=== PATIENT | male | born 1990 | race Caucasian/White ===

== ENCOUNTER 2016-04-23 08:33 | Day surgery (SDC) | payer BC, SELFPAY ==
[~2016-04-23] VITALS: Ht 177.8 cm; Wt 68.0 kg
[~2016-04-23 08:33] MED LIST: ALBU17IN INH; DOCU10CA PO; LEVA500T PO; MILKSUS PO; MOTR200T44 PO; NICO14DI3 TD; SENO8.6T2 PO; TYLE500T78 PO; ZITH250T PO; robitussin PO
[2016-04-23] MEDS ORDERED: dexameTHASONE 4 MG/ML 1ML VIAL (J1100) IV ONE (08:45)
[2016-04-23] MEDS ORDERED: LR 1,000 ML IV SCH ×2 (08:45→18:15)
[2016-04-23] MEDS ORDERED: CEFUROXIME SODIUM 1.5 GM in D5W MINI-BAG PLUS 50 ML IV ONE (08:45)
[2016-04-23] MEDS ORDERED: BACITRACIN PWD 50,000 UNITS VIAL As Ordered ONE (10:55)
[2016-04-23] MEDS ORDERED: THROMBIN SOLN 20,000 UNITS KIT As Ordered ONE (10:55)
[2016-04-23] MEDS ORDERED: ROCURONIUM BROMIDE 50 MG/5 ML VIAL As Ordered ONE (14:12)
[2016-04-23] MEDS ORDERED: MIDAZOLAM INJ 2 MG/2 ML VIAL (J2250) As Ordered ONE (14:12)
[2016-04-23] MEDS ORDERED: PROPOFOL 200 MG/20 ML VIAL As Ordered ONE ×2 (14:12)
[2016-04-23] MEDS ORDERED: LIDOCAINE 2% INJ 100 MG/5 ML SDV (FOR ANES.) As Ordered ONE (14:12)
[2016-04-23] MEDS ORDERED: ONDANSETRON 4MG/2ML VIAL (J2405) As Ordered ONE (14:12)
[2016-04-23] MEDS ORDERED: ePHEDrine SULFATE 25 MG/5 ML(5MG/ML) SYRINGE As Ordered ONE ×2 (14:12→15:30)
[2016-04-23] MEDS ORDERED: fentaNYL 250 MCG/5 ML INJECTION (J3010) As Ordered ONE (14:12)
[2016-04-23] MEDS ORDERED: GLYCOPYRROLATE INJ 0.2 MG/ML 2 ML VIAL As Ordered ONE ×3 (14:23→14:24)
[2016-04-23] MEDS ORDERED: NEOSTIGMINE 1MG/ML 5 ML SYRINGE (J2710) As Ordered ONE (14:24)
[2016-04-23] MEDS ORDERED: THROMBIN SOLN 20,000 UNITS KIT TOP ONE (14:46)
[2016-04-23] MEDS ORDERED: BACITRACIN PWD 50,000 UNITS VIAL XX ONE (14:47)
[2016-04-23] MEDS ORDERED: fentaNYL 100 MCG/2 ML INJECTION (J3010) As Ordered ONE (16:41)
[2016-04-23] MEDS ORDERED: KETOROLAC 60 MG/2 ML VIAL (J1885) As Ordered ONE (17:00)
[2016-04-23] MEDS ORDERED: ONDANSETRON 4MG/2ML VIAL (J2405) IV PRN ×2 (17:45→18:15)
[2016-04-23] MEDS ORDERED: ACETAMINOPHEN TAB 650MG DOSE (2X325MG) PO PRN (17:45)
[2016-04-23] MEDS ORDERED: NORCO, ANEXSIA 5/325MG TABLET (HYDROcodone/ACETAMINOPHEN) PO PRN ×2 (17:45)
[2016-04-23] MEDS ORDERED: MORPHINE 2 MG/ML 1ML SYRINGE IV PRN (17:45)
[2016-04-23] MEDS ORDERED: fentaNYL 100 MCG/2 ML INJECTION (J3010) IV PRN (18:15)
[2016-04-23] MEDS ORDERED: PERCOCET 5MG/325MG TAB PO PRN (18:15)
[2016-04-23 18:30] VITALS: BP 129/82
[2016-04-23] MEDS: KCL 20MEQ IN D5/0.45NS 1000ML 1,000 ML IV SCH (19:00)
[2016-04-23] MEDS: CARISOPRODOL 350 MG TAB PO SCH (19:42)
[2016-04-23 20:00] VITALS: BP 156/82
[2016-04-23 21:00] VITALS: BP 133/68
[2016-04-23 22:00] VITALS: BP 135/79
[2016-04-23] MEDS: MORPHINE 4 MG/ML 1ML SYRINGE IV PRN (22:20)
[2016-04-23] MEDS: CEFUROXIME SODIUM 750 MG in D5W MINI-BAG PLUS 50 ML IV SCH (22:20)
[2016-04-23 23:00] VITALS: BP 125/68
--- NOTE | 2016-04-24 00:28 | RO ---
DATE OF PROCEDURE: 04/23/2016 PREPROCEDURE DIAGNOSIS: Malpositioned pulse generator for spinal cord stimulator. POSTPROCEDURE DIAGNOSIS: Malpositioned pulse generator for spinal cord stimulator. PROCEDURE: Removal of pulse generator from right superior gluteal region to left flank, extensive dissection of epidural stimulator wires at thoracic incision, re-routing of wires into the new left flank pulse generator location. SURGEON: Dr. Wander Julien [employer]: Fer ANESTHESIA: General endotracheal. DESCRIPTION OF PROCEDURE: After satisfactory general endotracheal anesthesia was established, the patient was positioned prone on longitudinal rolls and all pressure points carefully padded. The back was prepped from the base of the neck down to the superior gluteal crease and laterally to both mid axillary lines and then draped in a sterile fashion. The operative field included the midline thoracic laminectomy incision, the right pulse generator location and the left flank for the new pulse generator location. Attention was first directed to the right superior gluteal region where the incision overlying the pulse generator was reopened and then the unit dissected free of its positive scar tissue. The electrode wires were disconnected and the pulse generator set aside for further use. Attention then directed to the thoracic midline incision. The inferior portion of the incision was opened and it was extended inferiorly about 2 cm in the midline. All dissection was carried out meticulously and slowly. The electrode wires had been well localized with the C-arm before prepping and draping so that the course of the electrode wires from the pulse generator to the laminectomy incision were well laid out. There was, however, no way of being sure at what depth the wires were located and since the goal was to simply transfer the electrode wires from the right side to the left side, it was essential that the four electrode wires be dissected out of their investing scar tissue without any damage to the insulation or movement of the electrode over the thoracic spinal cord. Multiple images were taken with the C-arm and extensive dissection was carried out in the subcutaneous tissues dorsal to the thoracic fascia and within dense scar tissue without encountering any of the electrode wires. Gentle pulling on the electrode wires abandoned in the open right gluteal incision, produced no visible movement. It became apparent that the electrode wires must have been deep to the fascia; therefore, dissection was begun directly over some of the electrode wires as determined by fluoroscopy. However, dissection was carefully and very slowly carried anteriorly through dense scar tissue until the clear insulation of one of the wires was encountered. Further dissection revealed the dorsal most location of a coil since dissecting this wire cephalad and caudad found the wire to be diving deeper presumably the coil insulation. Multiple other wires were found in the vicinity of the first one, but it was not possible to determine which was proximal and which was distal since it was not known how the wires were coiled. Attention was then directed further laterally, guided by fluoroscopy to over a point where the bundle of wires could be seen likely into the midline. After determining that the wire was not in a subcutaneous location, dissection was begun into the paraspinal musculature, about 2 cm to the right of midline and directly dorsal to the wires as determined with the C-arm. Dissection was carried anteriorly to beyond the level of the spine. At this point, gentle movement of the electrode wires in the gluteal incision did produce visible movement ventral to our dissection location in the paraspinal musculature. We continued to try to find the electrode wires for a considerable length of time. Eventually this approach was abandoned because it simply was not possible to find the electrode wires deep within the paraspinal musculature. Attention then directed back to where the electrode wires had been coiled, and I elected to begin using sharp dissection instead of semi-sharp dissection to help in isolating the correct proximal portion of the electrodes. By proximal, I mean closer to the pulse generator and of the wires. Very carefully, the investing scar tissue was incised over one of the electrode wires and the most proximal end of each wire was gently pulled, and it was possible to see the movement in the wire within its investing scar tissue sheath and in this way determined which way the wire should be pulled to remove it from the pulse generator and not disturb the electrode end. This approach proved to be successful, and we were able to carefully remove each electrode wire from its sheath of scar tissue after identifying it in this manner. There was essentially no resistance to withdrawing the flexible portion of the wire and the rigid final 3 cm portion through its investing sheath of tissue. Accordingly, each electrode wire was identified by carefully incising its sheath of surrounding scar tissue and then gently pulling on the proximal portions of the wires. In this way, the wire was identified and the direction that it should be withdrawn determined. Each of the wires were withdrawn without difficulty, and this was done without any damage to the wire or its insulation. Once the four wires had been pulled back into the thoracic incision, attention was directed to the left flank region and a transverse incision made. A subcutaneous pocket approximately 2 cm in depth was then made to accommodate the pulse generator. The new subcutaneous tunnel was developed from the incision down to the pulse generator pocket and the electrode wires passed. They were connected to the pulse generator and the impedances were checked and all of the contacts in the electrode array were found to be making satisfactory contact. The pulse generator was then positioned in the subcutaneous pocket and proper orientation confirmed. Once the excess electrode wire was coiled into the pocket along with the pulse generator and when it was in final position, the impedances were then checked and again found to be satisfactory. All incisions were then copiously irrigated with antibiotic solution and meticulous hemostasis obtained. The incisions were closed using #3-0 Vicryl for small areas of muscle closure in the thoracic region and #3-0 Vicryl for the subcutaneous closure in the gluteal incision, the left flank incision and the subcutaneous thoracic incision. Skin edges were then approximated with Dermabond. The patient was then taken to the recovery room in stable condition having tolerated the procedure well.
[2016-04-24] MEDS: MORPHINE 4 MG/ML 1ML SYRINGE IV PRN ×3 (02:23→13:54)
[2016-04-24 03:00] VITALS: BP 121/58
[2016-04-24] MEDS: KCL 20MEQ IN D5/0.45NS 1000ML 1,000 ML IV SCH (03:10)
[2016-04-24 06:00] VITALS: BP 126/69
[2016-04-24] MEDS: CEFUROXIME SODIUM 750 MG in D5W MINI-BAG PLUS 50 ML IV SCH (06:31)
[2016-04-24] MEDS: CARISOPRODOL 350 MG TAB PO SCH (08:12)
[2016-04-24] MEDS ORDERED: SOMA350T PO (09:07)
[2016-04-24] MEDS ORDERED: NORC5TAB PO (09:07)
[2016-04-24] MEDS ORDERED: KEFL500C7 PO (09:07)
--- NOTE | 2016-04-24 10:26 | REP ---
Partial thoracic spine series: Two views. History: Low back pain. 49 seconds of fluoroscopy time is reported. Findings: A sequence of two fluoroscopically obtained intraprocedural spot radiographs of the thoracic spine document dorsal column stimulator lead placement. Signed by Osei Zamorano MD 04/24/2016 10:40 A
[2016-04-24] MEDS ORDERED: NORCO, ANEXSIA 5/325MG TABLET (HYDROcodone/ACETAMINOPHEN) PO PRN (11:30)
== END 2016-04-24 14:20 | disposition home or self-care (01) ==
LOC: M SDC 08:33 → EDBD 11:00 → M MS5PR 18:25 → M SDC 04-24 14:20
PROVIDERS: ATTEND Neurological Surgery
DX: T85.122D Displacement of implanted electronic neurostimulator of spinal cord electrode (lead), subsequent encounter (principal); G89.29 Other chronic pain; M54.5 Low back pain; F17.290 Nicotine dependence, other tobacco product, uncomplicated; Z88.1 Allergy status to other antibiotic agents
CPT/HCPCS: 63688; 77002; 96372; 96374; 96375; 96376; J0697; J1100; J1885; J2250; J2405; J2710; J3010